=== PATIENT | male | born 1990 | race Caucasian/White ===

== ENCOUNTER 2023-08-15 15:29 | Emergency (ER) | payer MEDICAID, SELFPAY ==
[2023-08-15 15:29] VITALS: BP 134/75; PULSE 65; RESP 18; TEMP 36.1; O2SAT 100; BMI 25.8
--- NOTE | 2023-08-15 15:49 | EX.ED.UPPERE ---
HPI History of Present Illness Chief Complaint: Upper Extremity Injury PFSH PFS Medical History no medical history Home Medications NK 08/15/23 [History Last Taken Unknown] Allergy/AdvReac Type Severity Reaction Status Date / Time No Known Allergies Allergy Verified 08/15/23 15:31 Family History no significant family his Surgical History no surgical history Social History (System 07/18/19 @ 09:46 by Luana Cat) Smoking Status: Current every day smoker tobacco type: cigarettes EXAM Physical Exam Const Vital Signs: 08/15/23 15:29 Temperature 97 F L Temperature Source Temporal Pulse Rate 65 Respiratory Rate 18 Blood Pressure 134/75 H Blood Pressure Mean 94 Pulse Ox 100 Oxygen Delivery Method Room Air MDM MDM MDM Narrative Medical decision making narrative: HISTORY OF PRESENT ILLNESS: 32-year-old male here with wrist pain. He states he is unsure if he injured his wrist however he has right wrist swelling and pain. He further states he may have over exerted himself at work. He hangs dry wall. No other injury endorsed. REVIEW OF SYSTEMS: Pertinent positives: Right wrist pain Pertinent negatives: Weakness, numbness, loss sensation, fever PHYSICAL EXAM: Nursing triage notes reviewed, Vital signs reviewed Constitutional: please see mdm Extremities: Slight swelling along the distal forearm over the extensor musculature, there is slight slight ecchymosis consistent with contusion Neuro: Intact 5/5 strength with ok sign (median), intact finger abduction (ulnar) intact wrist extension (radial n). Intact sensation in the radial, ulnar, and median nerve distributions. Skin: No rash or lesions noted MEDICAL DECISION MAKING: Chief Complaint: Right wrist pain External records reviewed: No recent advanced imaging of the involved EXTR Factors affecting care: none Social determinants of health: none History obtained from others: none Consults: none [facility] Narrative: Patient was hemodynamically stable, afebrile, nontoxic-appearing I considered the following differential diagnosis: Wrist fracture, dislocation, contusion, septic arthritis, gouty arthritis, vascular occlusion, DVT ALL IMAGES (IF OBTAINED) HAVE BEEN PERSONALLY REVIEWED AND INTERPRETED BY MYSELF. XR of the right wrist read and reviewed by myself. X-ray showed no evidence of fracture dislocation. Radiologist agrees with my interpretation. Gouty or septic arthritis necrotizing fasciitis or any other life or limb threatening etiology. There is no clinical evidence to suggest arterial occlusion, DVT The patient and/or family, caregivers express understanding. The patient and/or family, caregivers agrees with the plan. Shared decision making: I will have a discussion with the patient and or visitors regarding risk/benefits of further testing or admission. They will be made aware of of the risk/benefits inherent in this decision they will be given the opportunity to voice understanding. Total critical care time today provided was at least 0 minutes. This excludes separately billable procedures. Critical care time (if documented) is secondary to the patient having high probability of clinically significant/life threatening deterioration in the patient's condition which required my urgent intervention. Impression: 1. Right forearm contusion Dispo: Discharge Discharge Plan Triage Chief Complaint: Upper Extremity Injury ED Provider: Arcadio Talavera Dx/Rx/DC Orders Instructions: Bone Contusion Prescriptions: No Action NK Primary Care Provider: Care Physician,Sharon Primary Referrals: Andrew Diaz MD [Med Staff - Swimming Pool Serviceperson] - Activity Restrictions/Additional Instructions: Thank you for trusting us with your care today! Please take Tylenol (2 pills, 650 mg), ibuprofen (2 pills, 400 mg) every 6 hours as needed for pain and fever control. Please return to the emergency department if your symptoms change or worsen. Please follow with your primary care physician for further outpatient evaluation and management. Disposition Disposition: Home, Self Care Discharge Date/Time: 08/15/23 16:47
--- NOTE | 2023-08-15 15:55 | RAD_ITS ---
INDICATION: pain, no injury EXAMINATION/TECHNIQUE: X-RAY - RIGHT XR Wrist 3 Views COMPARISON: FINDINGS: SOFT TISSUES: No soft tissue swelling or gas. No radiopaque foreign body. BONES/JOINTS: No acute fracture or subluxation.. Normal alignment. Preservation of the joint space.. No sclerotic or destructive changes observed. RAD/Wrist min 3 Views IMPRESSION: Negative. Electronically Signed: Bob Acosta DO at 16:30 EDT ,
[2023-08-15 16:46] VITALS: RESP 16
== END 2023-08-15 16:47 | disposition home or self-care (01) ==
PROVIDERS: Emergency Provider Emergency Medicine; Visit Provider Emergency Medicine
DX: S50.11XA Contusion of right forearm, initial encounter (principal); F17.210 Nicotine dependence, cigarettes, uncomplicated; X58.XXXA Exposure to other specified factors, initial encounter
CPT/HCPCS: 73110; 99283

== ENCOUNTER 2024-10-26 09:55 | Emergency (ER) | payer MEDICAID, SELFPAY ==
[2024-10-26 09:56] VITALS: BP 133/71; PULSE 89; RESP 98; TEMP 37; O2SAT 100; BMI 24.2
--- NOTE | 2024-10-26 10:06 | EDS_ITS ---
HPI HPI - Fall History of Present Illness Chief Complaint: Fall PFSH PFSH Home Medications ?Medication ?Instructions ?Recorded ?Last Taken ?Type NK 08/15/23 Unknown History Allergy/AdvReac Type Severity Reaction Status Date / Time No Known Allergies Allergy Verified 10/26/24 09:56 Social History (System 07/18/19 @ 09:46 by Luana Cat) Smoking Status: Current every day smoker tobacco type: cigarettes EXAM Physical Exam Const Vital Signs: 10/26/24 09:56 10/26/24 10:00 10/26/24 12:04 Temperature 98.6 F Temperature Source Oral Pulse Rate 89 83 Respiratory Rate 98 H 16 Respiratory Effort Normal Blood Pressure 133/71 H 141/73 H Blood Pressure Mean 91 95 Pulse Ox 100 98 Oxygen Delivery Method Room Air MDM MDM MDM Narrative Medical decision making narrative: HISTORY OF PRESENT ILLNESS: 33 M here 2/2 to fall. Notes he fell out of a tree stand yesterday. Notes back, right wrist pain. Notes he suffered head trauma and bust his lip. Does report head trauma. Reports loss of consciousness. Denies taking blood thinners. REVIEW OF SYSTEMS: Pertinent positives: Back pain, right wrist pain Pertinent negatives: Vomiting, focal loss of movement or sensation PHYSICAL EXAM: Nursing triage notes reviewed, Vital signs reviewed Primary Survey Airway: Intact Breathing: Bilateral breath sounds Circulation: Palpable bilateral femorals, Palpable bilateral radial, Palpable bilateral DP and Palpable bilateral PT Disability / Spine precautions GCS Score: Eye Openin Verbal Response: 5 Motor Response: 6 Secondary Survey Constitutional: Please see MDM Head: Atraumatic, Midface stable, NO jaw malocclusion, No Cephalohematoma, and No Lacerations noted Eye: Pupils equal round and reactive to light, Extraocular muscles intact and No periorbital ecchymosis or stepoff, no evidence of entrapment ENT: Oropharynx clear, no lacerations, no hemotympanum, no raccoon eyes or batista sign Cervical spine / Neck: No cervical spine bony tenderness, crepitance, or stepoff deformity Trachea midline Lungs: Clear to auscultation, No asymmetric rise and No crepitus, no flail chest Cardiac: Regular rate and rhythm and No murmurs Abdomen: Soft, Nontender and No rebound Pelvis: Pelvis stable to compression : No evidence of genital injury Back: Midline tenderness of the lower spine otherwise no step-offs or deformities. Neuro: At baseline, intact strength and sensation in bilateral upper and lower extremities. 2+ patellar reflexes bilaterally. Extremities: NO gross Deformities, no TTP over bilateral ankles or calcaneus, TTP over right fifth metacarpal. (Patient states he had a prior injury) Psych: Normal affect Nursing triage notes reviewed, Vital signs reviewed MEDICAL DECISION MAKING: Chief Complaint: Back pain, right wrist pain External records reviewed: Reviewed prior imaging Factors affecting care: none Social determinants of health: none History obtained from others: none Consults: none MDM Narrative: Patient was initially hemodynamically stable, afebrile and nontoxic-appearing. Primary secondary trauma surveys concern for the following differential diagnosis. I considered the following differential diagnosis: Traumatic abnormalities of the following: Intracranial abnormality, cervical spine abnormality lumbar spine abnormality, hand abnormality I obtained a broad imaging workup to further elucidate etiology of the patient's complaints ALL IMAGES (IF OBTAINED) HAVE BEEN PERSONALLY REVIEWED AND INTERPRETED BY MYSELF. Imaging studies were negative for acute traumatic injury. Specifically no sign of ICH, skull fracture, cervical spine fracture dislocation, thoracic or lumbar spine fracture dislocation. X-ray of the right hand was read reviewed personally by myself, interpreted by myself showed prior fracture of the fifth metacarpal but no new traumatic injury. Tertiary exam without new traumatic injuries. Patient ambulated without significant difficulty. He is appropriate discharge home with a tidal ibuprofen instructions and close outpatient PCP/orthopedic follow-up instructions. The patient and/or family, caregivers express understanding. The patient and/or family, caregivers agrees with the plan. Shared decision making: I will have a discussion with the patient and or visitors regarding risk/benefits of further testing or admission. They will be made aware of of the risk/benefits inherent in this decision they will be given the opportunity to voice understanding. Total critical care time today provided was at least 0 minutes. This excludes separately billable procedures. Critical care time (if documented) is secondary to the patient having high probability of clinically significant/life threatening deterioration in the patient's condition which required my urgent intervention. Impression: 1. Fall 2. Back contusion 3. Right hand contusion Dispo: Discharge home This note was generated with [employer] dictation software. It may contain incorrect words, spelling, and punctuation that were not noted in review of the chart prior to signing. Radiography Diagnostic Testing: Clinical Impression(s) from Imaging Studies Brain CT 10/26/24 10:22 IMPRESSION: Normal unenhanced CT scan of the brain. Electronically Signed: Javid Miller MD at 11:49 EST , Cervical Spine CT 10/26/24 10:22 IMPRESSION: Normal unenhanced CT examination of the cervical spine. Electronically Signed: Javid Miller MD at 11:48 EST , Lumbar Spine CT 10/26/24 10:22 IMPRESSION: Normal unenhanced CT examination of the lumbar spine. Electronically Signed: Javid Miller MD at 11:46 EST , Thoracic Spine CT 10/26/24 10:30 IMPRESSION: Normal unenhanced CT examination of the thoracic spine. Electronically Signed: Javid Miller MD at 11:47 EST , Hand X-Ray 10/26/24 10:55 IMPRESSION: Healing fracture in the midshaft of the fifth metatarsal. Follow-up recommended to assure complete osseous union Electronically Signed: Javid Miller MD at 11:44 EST , Discharge Plan Triage Chief Complaint: Fall ED Provider: Arcadio Talavera Dx/Rx/DC Orders Instructions: Bone Contusion Prescriptions: No Action NK Stand Alone Forms: ED Work / School Excuse Primary Care Provider: Care Physician,No Primary Referrals: Benjamin Dobbs MD [Med Staff - Active Staff] - Eusebio Gonzalez MD [Med Staff - Waste Examiner] - Activity Restrictions/Additional Instructions: Thank you for trusting us with your care today! Your images were negative for acute traumatic injuries. There were no injuries found in your head, neck, upper or lower back. There are also no new injuries found in your right hand. There was an old injury noted to the right fifth bone of your hand. Please take Tylenol (2 pills, 650 mg), ibuprofen (2 pills, 400 mg) every 6 hours as needed for pain and fever control. Please return to the emergency department if your symptoms change or worsen. Please follow with your primary care physician for further outpatient evaluation and management. Print Language: Kiswahili Disposition Disposition: Home, Self Care Discharge Date/Time: 10/26/24 12:13
--- NOTE | 2024-10-26 10:22 | CT_ITS ---
STUDY: CT LUMBAR SPINE WITHOUT CONTRAST REASON FOR EXAM: Male, 33 years old. low back pain RADIATION DOSAGE (If Supplied By Facility): CTDIvol = ( 13.82 ) mGy, DLP = ( 380.74 ) mGycm TECHNIQUE: The patient was scanned in a multi detector CT scanner. High resolution transaxial imaging was performed. Images were obtained from mid T12 to proximal coccyx. Sagittal and coronal images were reconstructed. Individualized dose optimization techniques were used for this CT. COMPARISON: None FINDINGS: Normal lumbar lordosis. There is no substantial scoliosis. Normal alignment of the lumbar vertebral bodies. Normal vertebrae of the lumbar spine. There is no demonstrated compression deformity or fracture of the visualized lumbar vertebrae. L1-2: Normal endplates. Normal disc height and morphology. Normal bilateral facet joints. Normal central canal and bilateral lateral recesses. Normal bilateral intervertebral neural foramina. L2-3: Normal endplates. Normal disc height and morphology. Normal bilateral facet joints. Normal central canal and bilateral lateral recesses. Normal bilateral intervertebral neural foramina. L3-4: Normal endplates. Normal disc height and morphology. Normal bilateral facet joints. Normal central canal and bilateral lateral recesses. Normal bilateral intervertebral neural foramina. L4-5: Normal endplates. Normal disc height and morphology. Normal bilateral facet joints. Normal central canal and bilateral lateral recesses. Normal bilateral intervertebral neural foramina. L5-S1: Normal endplates. Normal disc height and morphology. Normal bilateral facet joints. Normal central canal and bilateral lateral recesses. Normal bilateral intervertebral neural foramina. Normal visualized paraspinous soft tissue structures. CT/Spine Lumbar without Contrast IMPRESSION: Normal unenhanced CT examination of the lumbar spine. Electronically Signed: Javid Miller MD at 11:46 EST ,
--- NOTE | 2024-10-26 10:22 | CT_ITS ---
STUDY: CT CERVICAL SPINE WITHOUT CONTRAST REASON FOR EXAM: Male, 33 years old. fall, neck pain RADIATION DOSAGE (If Supplied By Facility): CTDIvol = ( 23.39 ) mGy, DLP = ( 454.14 ) mGycm TECHNIQUE: High resolution transaxial imaging was performed without contrast material. Sagittal and coronal images were reconstructed. Individualized dose optimization techniques were used for this CT. COMPARISON: None FINDINGS: Normal craniovertebral junction. Normal anterior atlantoaxial articulation. Normal odontoid process. There is straightening of the normal cervical lordosis, likely positional or due to pain. Normal vertebral bodies and posterior osseous elements. C2-3: Normal endplates. Normal disc height and morphology. Normal central canal and intervertebral neuroforamina. C3-4: Normal endplates. Normal disc height and morphology. Normal central canal and intervertebral neuroforamina. C4-5: Normal endplates. Normal disc height and morphology. Normal central canal and intervertebral neuroforamina. C5-6: Normal endplates. Normal disc height and morphology. Normal central canal and intervertebral neuroforamina. C6-7: Normal endplates. Normal disc height and morphology. Normal central canal and intervertebral neuroforamina. C7-T1: Normal endplates. Normal disc height and morphology. Normal central canal and intervertebral neuroforamina. Normal visualized soft tissue structures. CT/Spine Cervical without Contras IMPRESSION: Normal unenhanced CT examination of the cervical spine. Electronically Signed: Javid Miller MD at 11:48 EST ,
--- NOTE | 2024-10-26 10:22 | CT_ITS ---
STUDY: CT BRAIN WITHOUT CONTRAST REASON FOR EXAM: Male, 33 years old. Headache after fall RADIATION DOSAGE (If Supplied By Facility): CTDIvol = ( 44.99 ) mGy, DLP = ( 779.24 ) mGycm TECHNIQUE: Transaxial CT imaging of the brain was performed without administration of intravenous contrast material. Individualized dose optimization techniques were used for this CT. COMPARISON: No relevant priors. FINDINGS: Normal soft tissue structures. Normal calvarium. Normal size ventricles and extra-axial spaces for the patient''s age. Normal white matter tracts of the cerebral hemispheres. Normal basal ganglia and thalami. Normal brainstem. Normal cerebellum. There is no intracranial hemorrhage. There are no findings of an acute ischemic infarction. Normal visualized paranasal sinuses. CT/Brain/Head without Contrast IMPRESSION: Normal unenhanced CT scan of the brain. Electronically Signed: Javid Miller MD at 11:49 EST ,
--- NOTE | 2024-10-26 10:30 | CT_ITS ---
STUDY: CT THORACIC SPINE WITHOUT CONTRAST REASON FOR EXAM: Male, 33 years old. mid back pain RADIATION DOSAGE (If Supplied By Facility): CTDIvol = ( 18.45 ) mGy, DLP = ( 651.13 ) mGycm TECHNIQUE: The patient was scanned in a multi detector CT scanner. High resolution imaging was performed. Images were obtained from C7 to T12. Sagittal and coronal images were reconstructed. Individualized dose optimization techniques were used for this CT. COMPARISON: None. FINDINGS: Normal visualized cervical spine. Normal kyphosis of the thoracic spine. There is no substantial scoliosis. Normal thoracic vertebrae and endplates. Normal disc spaces heights. The soft tissue structures are unremarkable. CT/Spine Thoracic without Contras IMPRESSION: Normal unenhanced CT examination of the thoracic spine. Electronically Signed: Javid Miller MD at 11:47 EST ,
[2024-10-26] MEDS: Acetaminophen 325 MG Tablet 650 MG PO (10:33)
--- NOTE | 2024-10-26 10:55 | RAD_ITS ---
STUDY: X-RAY - RIGHT HAND REASON FOR EXAM: Male, 33 years old. Fifth metatarsal pain TECHNIQUE: 3 view(s) of the hand. COMPARISON: None. FINDINGS: Normal radiocarpal articulation. Normal distal radioulnar joint. Normal visualized carpal bones. Normal carpal articulations Normal carpometacarpal articulation of the thumb. Normal second through fifth carpometacarpal joints. There is a healing fracture in the mid shaft of the fifth metacarpal with slight dorsal angulation. Significant periosteal reaction has occurred but there is still evidence of fracture lucency. Follow-up recommended to assure complete osseous union. No acute metatarsal fracture. Normal metacarpophalangeal joint of the thumb. Normal interphalangeal joint of the thumb. Normal proximal and distal phalanges of the thumb. Normal metacarpophalangeal joints of the second through fifth fingers. Normal proximal and distal interphalangeal joints of the second through fifth fingers. There is a subchondral lucency in the proximal lateral aspect of the proximal third phalanx likely a bone cyst or sequela from previous injury. Normal remaining phalanges of the second through fifth fingers. The soft tissue structures are unremarkable. RAD/Hand Min 3 Views IMPRESSION: Healing fracture in the midshaft of the fifth metatarsal. Follow-up recommended to assure complete osseous union Electronically Signed: Javid Miller MD at 11:44 EST ,
[2024-10-26 12:04] VITALS: BP 141/73; PULSE 83; RESP 16; O2SAT 98
== END 2024-10-26 12:13 | disposition home or self-care (01) ==
PROVIDERS: Emergency Provider Emergency Medicine; Visit Provider Emergency Medicine
DX: S30.0XXA Contusion of lower back and pelvis, initial encounter (principal); S60.221A Contusion of right hand, initial encounter; W14.XXXA Fall from tree, initial encounter; F17.210 Nicotine dependence, cigarettes, uncomplicated
CPT/HCPCS: 70450; 72125; 72128; 72131; 73130; 99282